=== PATIENT | female | born 1955 | race Caucasian/White ===

== ENCOUNTER → 2017-09-15 | Outpatient (CLI) | payer OTHER ==
[~2017-09-15] MED LIST: ADULT LOW DOSE81 MG PO; ALEVE220 MG PO; ASPIRIN EC81 M1 PO; CALCIUM 600 +1 EAC1 PO; CELEBREX 200 M200 MG PO; CENTRUM SILVER1 EAC4 PO; CIPRO500 MG PO; CYMBALTA30 MG PO; DIAZEPAM 10 MG10 M2 PO; ESCITALOPRAM OX10 MG PO; ESTROGEN; EVOXAC30 MG PO; FLONASE 0.05%50 MCG NASAL; KEFLEX250 MG PO; KRILL OIL500 MG PO; LYRICA 50 MG50 MG PO; LYRICA150 MG PO; NEXIUM40 MG PO; NORCO 5-325 TA1 EACH PO; PREBIOTIC PO; PREDNISONE 20 M20 MG PO; PROBIOTIC1 EAC1 PO; QSYMIA 7.5 MG-1 EACH PO; SYNTHROID125 MCG PO; TESTOSTERONE; TRAMADOL 50 MG50 MG PO; TRAZODONE HCL50 MG PO; TURMERIC500 M1 PO; VALIUM10 MG PO; VANCO 1 GR1 GM/250 M IV; VITAMINC500 PO; ZOFRAN ODT4 MG PO
== END ==
LOC: RAD 09-14 11:14
DX: N63.10 Unspecified lump in the right breast, unspecified quadrant (principal)

== ENCOUNTER → 2018-08-02 | Outpatient (CLI) | payer OTHER | LOC: BC 07-13 14:24 | DX: R92.2 Inconclusive mammogram (principal) ==

== ENCOUNTER → 2019-01-16 | Outpatient (CLI) | payer OTHER | LOC: CAT 08:16 | DX: Z13.6 Encounter for screening for cardiovascular disorders (principal); I25.10 Atherosclerotic heart disease of native coronary artery without angina pectoris; E78.00 Pure hypercholesterolemia, unspecified ==

== ENCOUNTER → 2021-01-09 | Outpatient (CLI) | payer BC | LOC: BC 01-07 11:56 | PROVIDERS: ATTEND Obstetrics & Gynecology | DX: Z12.31 Encounter for screening mammogram for malignant neoplasm of breast (principal) ==

== ENCOUNTER → 2021-06-11 | Outpatient (CLI) | payer OTHER | LOC: CAT 11:56 | PROVIDERS: ATTEND Internal Medicine Cardiovascular Disease | DX: Z13.6 Encounter for screening for cardiovascular disorders (principal) ==

== ENCOUNTER → 2021-08-06 | Outpatient (CLI) | payer BC | LOC: SJCVCIMAG 08:35 | PROVIDERS: ATTEND Internal Medicine Cardiovascular Disease | DX: Z03.89 Encounter for observation for other suspected diseases and conditions ruled out (principal); E78.5 Hyperlipidemia, unspecified; M32.9 Systemic lupus erythematosus, unspecified; M35.00 Sjogren syndrome, unspecified; Z82.49 Family history of ischemic heart disease and other diseases of the circulatory system ==